=== PATIENT | female | born 1950 | race Caucasian/White ===

== ENCOUNTER 2022-03-04 11:08 | Outpatient (CLI) | payer MEDICARE, SELFPAY | END 2022-03-04 11:09 | disposition home or self-care (01) | LOC: ANHWCLAB 11:11 | PROVIDERS: Visit Provider Internal Medicine Endocrinology, Diabetes & Metabolism | DX: E03.8 Other specified hypothyroidism (principal); E06.3 Autoimmune thyroiditis | CPT/HCPCS: 36415; 84439; 84443 ==